=== PATIENT | female | born 1985 | race Caucasian/White ===

== ENCOUNTER 2018-05-18 13:21 | Observation (INO) | payer SELFPAY ==
[~2018-05-18] VITALS: Wt 111.4 kg
[2018-05-18] VITALS (8 sets, daily range): BP systolic 98–133; BP diastolic 49–83; PULSE 107–124; TEMP 98.1–99.4
[2018-05-18 14:10] LABS: BASO % 0.3 % (0.0-2.0); EOS # 0.1 (0.0-0.7); EOS % 1.7 % (0-4.0); GRAN % 62.6 % (42.2-75.2); LYMPH # 1.6 (1.2-3.4); LYMPH % 24.9 % (20.0-51.0); MEAN CELL VOLUME 81 fl (80.0-100.0); MEAN CORPUSCULAR HGB CONC 31 g/dl (33.0-37.0); MONO # 0.6 (0.1-0.6); MONO % 9.6 % (1.7-9.3); PLATELET COUNT 193 K/mm3 (130-400); RED BLOOD COUNT 2.37 M/mm3 (4.10-5.30); REDCELL DISTRIBUTION WIDTH-CV 15.1 % (11.5-14.5)
[2018-05-18 14:15] LABS: HEMATOCRIT 19.3 % (37.0-47.0); HEMOGLOBIN 5.9 g/dl (12.5-16.0); MEAN CORPUSCULAR HEMOGLOBIN 25 pg (27.0-31.0)
[2018-05-18 14:20] LABS: ALANINE AMINOTRANSFERASE 46 U/L (9-52); ALBUMIN 3.9 gm/dL (3.5-5.0); ALKALINE PHOSPHATASE 66 U/L (50-136); ANION GAP 8 mmol/L (7-16); AST,SGOT 26 U/L (15-37); BILIRUBIN,TOTAL 0.6 mg/dL (0.0-1.0); BLOOD UREA NITROGEN 9 mg/dL (7-17); CARBON DIOXIDE 27 mmol/L (22-30); CHLORIDE 107 mmol/L (98-107); CREATININE, serum 0.97 mg/dL (0.52-1.25); GLUCOSE 104 mg/dL (74-106); LIPASE 166 U/L (23-300); POTASSIUM 3.7 mmol/L (3.4-5.0); SODIUM 142 mmol/L (137-145); TOTAL PROTEIN 6.7 gm/dL (6.4-8.2)
[2018-05-18 14:38] LABS: TROPONIN-I < 0.012 ng/mL (0.000-0.034)
[2018-05-19] VITALS (8 sets, daily range): BP systolic 91–123; BP diastolic 38–73; PULSE 95–109; TEMP 97.8–98.9
[2018-05-19 03:37] LABS: HEMATOCRIT 23.3 % (37.0-47.0); HEMOGLOBIN 7.5 g/dl (12.5-16.0)
[2018-05-19 08:20] LABS: MEAN CELL VOLUME 83 fl (80.0-100.0); MEAN CORPUSCULAR HGB CONC 32 g/dl (33.0-37.0); MEAN PLATELET VOLUME 11.2 fl (7.4-10.4); PLATELET COUNT 156 K/mm3 (130-400); RED BLOOD COUNT 2.74 M/mm3 (4.10-5.30); REDCELL DISTRIBUTION WIDTH-CV 15.8 % (11.5-14.5)
[2018-05-19 08:22] LABS: HEMATOCRIT 22.7 % (37.0-47.0); HEMOGLOBIN 7.3 g/dl (12.5-16.0); MEAN CORPUSCULAR HEMOGLOBIN 27 pg (27.0-31.0)
[2018-05-19] MEDS ORDERED: PROVERA 10MG10 MG PO (09:00)
== END 2018-05-19 09:25 | disposition home or self-care (01) ==
LOC: COL.ER 13:21 → OB 14:58
PROVIDERS: Emergency Medicine; Obstetrics & Gynecology
DX: N92.1 Excessive and frequent menstruation with irregular cycle (principal); D64.9 Anemia, unspecified; E66.9 Obesity, unspecified; G43.909 Migraine, unspecified, not intractable, without status migrainosus; Z84.2 Family history of other diseases of the genitourinary system
CPT/HCPCS: G0378; J7030; P9016; Q9967

== ENCOUNTER 2018-05-23 12:50 | Observation (INO) | payer SELFPAY ==
[2018-05-23] VITALS (11 sets, daily range): BP systolic 100–139; BP diastolic 31–106; PULSE 93–121; TEMP 98.4
[~2018-05-23] VITALS: Ht 167.6 cm; Wt 111.8 kg
[~2018-05-23 12:50] MED LIST: PROVERA 10MG10 MG PO
[2018-05-23 14:42] LABS: BASO % 0.7 % (0.0-2.0); EOS # 0.1 (0.0-0.7); EOS % 2.4 % (0-4.0); GRAN # 3.6 (1.4-6.5); GRAN % 60.8 % (42.2-75.2); LYMPH # 1.3 (1.2-3.4); LYMPH % 22.8 % (20.0-51.0); MEAN CELL VOLUME 83 fl (80.0-100.0); MEAN CORPUSCULAR HGB CONC 31 g/dl (33.0-37.0); MEAN PLATELET VOLUME 11.4 fl (7.4-10.4); MONO # 0.7 (0.1-0.6); MONO % 12.4 % (1.7-9.3); PLATELET COUNT 192 K/mm3 (130-400); RED BLOOD COUNT 3.25 M/mm3 (4.10-5.30); REDCELL DISTRIBUTION WIDTH-CV 15.9 % (11.5-14.5)
[2018-05-23 14:52] LABS: HEMATOCRIT 27.1 % (37.0-47.0); HEMOGLOBIN 8.4 g/dl (12.5-16.0); MEAN CORPUSCULAR HEMOGLOBIN 26 pg (27.0-31.0)
--- NOTE | 2018-05-23 16:10 | NUR ---
Pt arrives on unit via wheelchair from ED with this RN. Care of pt assumed at this time. Pt states hx of vaginal bleeding with hx of recieving 2 units of blood last week. Reports vaginal bleeding that began last night that continued to flow heavily with clots. Admission assessment completed. Pertinent pt hx verbally reviewed. Denies allergies. Dr. Kirk and Aron Jay CRNA at bedside. Discusses D&C. Plan of care to proceed with D&C. Pt agrees to plan of care. Questions answered. Pt assisted to OR ambulatory with this RN at 1648. Pt returns to room at 1723. BP, SP02, and HR assessed [id number] for first 30 minutes. VSS. Orders per Dr. Kirk to repeat CBC, H&H in 1hour. If WNL, bleeding/pain are controlled and pt able to urinate- ok to discharge. Pt updated on plan of care. No questions or concerns at this time. Call light within reach.
[2018-05-23 16:44] LABS: CALCIUM 9.5 mg/dL (8.4-10.2); CREATININE, serum 0.73 mg/dL (0.52-1.25); POTASSIUM 3.9 mmol/L (3.4-5.0)
[2018-05-23] MEDS ORDERED: MOTRIN 600600 MG/TAB PO (17:39)
[2018-05-23] MEDS ORDERED: PERCOCET 325 MG1 TA2 PO (17:39)
[2018-05-23 18:51] LABS: HEMATOCRIT 22.9 % (37.0-47.0); HEMOGLOBIN 7.3 g/dl (12.5-16.0)
--- NOTE | 2018-05-23 20:15 | NUR ---
2015- DISCHARGE INSTRUCTIONS GIVEN, PT VERBALIZES UNDERSTANDING. PAPERWORK SIGNED. IV SITE OUT. 2029- PT DISMISSED TO HOME PER WHEELCHAIR, ACCOMPANIED BY AND LDR STAFF.
== END 2018-05-23 20:30 | disposition home or self-care (01) ==
LOC: COL.ER 12:50 → OB 14:50
PROVIDERS: Emergency Medicine; ADMIT Obstetrics & Gynecology
DX: N92.1 Excessive and frequent menstruation with irregular cycle (principal); D64.89 Other specified anemias; R53.83 Other fatigue; E66.9 Obesity, unspecified; Z84.2 Family history of other diseases of the genitourinary system; K21.9 Gastro-esophageal reflux disease without esophagitis
CPT/HCPCS: G0378; J2405; J2704; J3010; J7030

== ENCOUNTER 2018-06-13 07:05 | Inpatient (IN) | payer SELFPAY ==
[~2018-06-13] VITALS: Ht 165.1 cm; Wt 114.9 kg
[2018-06-13] VITALS (12 sets, daily range): BP systolic 122–138; BP diastolic 68–88; PULSE 78–120; TEMP 98–99
[~2018-06-13 07:05] MED LIST changes: +MOTRIN 600600 MG/TAB PO; +PERCOCET 325 MG1 TA2 PO
[2018-06-13 07:40] LABS: BASO % 0.6 % (0.0-2.0); EOS # 0.2 (0.0-0.7); EOS % 2.6 % (0-4.0); GRAN # 4.4 (1.4-6.5); GRAN % 62.1 % (42.2-75.2); HEMATOCRIT 28.1 % (37.0-47.0); HEMOGLOBIN 8.4 g/dl (12.5-16.0); LYMPH # 1.9 (1.2-3.4); LYMPH % 26.6 % (20.0-51.0); MEAN CELL VOLUME 80 fl (80.0-100.0); MEAN CORPUSCULAR HEMOGLOBIN 24 pg (27.0-31.0); MEAN CORPUSCULAR HGB CONC 30 g/dl (33.0-37.0); MONO # 0.5 (0.1-0.6); MONO % 7.5 % (1.7-9.3); PLATELET COUNT 215 K/mm3 (130-400); RED BLOOD COUNT 3.51 M/mm3 (4.10-5.30); REDCELL DISTRIBUTION WIDTH-CV 16.8 % (11.5-14.5)
[2018-06-13] MEDS ORDERED: IRON 27 MG PO (07:51)
[2018-06-13] MEDS ORDERED: VIT C PO (07:53)
[2018-06-13] MEDS ORDERED: VITAMIN B PO (07:53)
[2018-06-13] MEDS ORDERED: MULTI VITAMINS1 TAB PO (07:54)
[2018-06-13] MEDS ORDERED: EXCEDRIN1 TAB PO (07:55)
[2018-06-13] MEDS ORDERED: PROVERA 10MG10 MG PO (07:56)
--- NOTE | 2018-06-13 07:57 | NUR ---
TO NATHAN AT 0713- CALL LIGHT IN REACH YAZAN' AT BEDSIDE
--- NOTE | 2018-06-13 13:26 | NUR ---
PATIENT EATS CRACKERS AND DRINKS WATER. COMPLAINS OF ABD PAIN. PERCOCET 2 TAB GIVEN AT THIS TIME.
[2018-06-13 13:45] LABS: HEMATOCRIT 26.5 % (37.0-47.0); HEMOGLOBIN 7.9 g/dl (12.5-16.0)
[2018-06-14 01:30] VITALS: BP 99/76; PULSE 102; TEMP 98.4
[2018-06-14 05:15] VITALS: BP 112/44; PULSE 101; TEMP 98.3
[2018-06-14 07:23] LABS: BASO % 0.1 % (0.0-2.0); GRAN # 5.8 (1.4-6.5); GRAN % 77.6 % (42.2-75.2); HEMATOCRIT 24.4 % (37.0-47.0); HEMOGLOBIN 7.2 g/dl (12.5-16.0); LYMPH % 12.6 % (20.0-51.0); MEAN CELL VOLUME 80 fl (80.0-100.0); MEAN CORPUSCULAR HEMOGLOBIN 24 pg (27.0-31.0); MEAN CORPUSCULAR HGB CONC 30 g/dl (33.0-37.0); MONO # 0.6 (0.1-0.6); MONO % 8.5 % (1.7-9.3); PLATELET COUNT 203 K/mm3 (130-400); RED BLOOD COUNT 3.06 M/mm3 (4.10-5.30); REDCELL DISTRIBUTION WIDTH-CV 16.8 % (11.5-14.5)
[2018-06-14] MEDS ORDERED: MOTRIN 600600 MG/TAB PO (09:12)
[2018-06-14] MEDS ORDERED: PERCOCET 325 MG1 TA2 PO (09:13)
--- NOTE | 2018-06-14 09:42 | NUR ---
Initial visit; Patient thanked [employer] Line Repairer for looking in on her and wishing her well and God's blessings.
--- NOTE | 2018-06-14 09:53 | NUR ---
0945 ALL PATIENT DISCHARGE INSTRUCTIONS GIVEN TO PATIENT AND , WITH VERBAL UNDERSTANDING NOTED. DISMISSED VIA AMBULATAION TO POV ACCOMPANIED BY STAFF.
== END 2018-06-14 09:45 | disposition home or self-care (01) | DRG 743 ==
LOC: SDCO 07:05 → OB 11:30 → SDCO 12:10 → OB 12:10
PROVIDERS: ADMIT Obstetrics & Gynecology
PROC: 0UT9FZZ Resection of Uterus, Via Natural or Artificial Opening With Percutaneous Endoscopic Assistance (ICD-10-PCS; principal; 2018-06-13 09:00)
PROC: 0UT7FZZ Resection of Bilateral Fallopian Tubes, Via Natural or Artificial Opening With Percutaneous Endoscopic Assistance (ICD-10-PCS; 2018-06-13 09:00)
DX: N92.1 Excessive and frequent menstruation with irregular cycle (principal); D25.2 Subserosal leiomyoma of uterus; N85.00 Endometrial hyperplasia, unspecified; E28.2 Polycystic ovarian syndrome; Z87.891 Personal history of nicotine dependence; E66.9 Obesity, unspecified; D50.0 Iron deficiency anemia secondary to blood loss (chronic)
CPT/HCPCS: J0690; J1100; J1170; J1885; J2405; J2550; J2704; J2710; J3010; J7120